=== PATIENT | female | born 1960 | race Caucasian/White ===

== ENCOUNTER 2020-10-24 14:44 | Outpatient (CLI) | payer BC, SELFPAY ==
--- NOTE | ~2020-10-24 | DEXA_ITS ---
Bone Density Report Name: Rola Douglas Age: 59 Sex: Female Ethnicity: White Date of : 1960 Indication: postmenopausal; Referring Provider: JcPeace Study: Bone densitometry was performed. Exam Date: October 24, 2020 Accession number: [id number] Bone Density: Region BMD T-score Z-score Classification AP Spine (L1-L4) 0.807 -2.2 -0.7 Osteopenia Femoral Neck (Left) 0.668 -1.6 -0.3 Osteopenia Total Hip (Left) 0.870 -0.6 0.4 Normal Total Hip Bilateral Avg 0.857 -0.7 0.3 Normal Femoral Neck (Right) 0.644 -1.8 -0.5 Osteopenia Total Hip (Right) 0.842 -0.8 0.2 Normal World Health Organization criteria for BMD impression classify patients as: Normal (T-score at or above -1.0), Osteopenia (T-score between -1.0 and -2.5), or Osteoporosis (T-score at or below -2.5). 10-year Fracture Risk(1): Major Osteoporotic Fracture 8.4% Hip Fracture 0.9% Reported Risk Factors: [place] (), Neck BMD=0.644, BMI=36.3 (1) FRAX(R) Version 3.08. Fracture probability calculated for an untreated patient. Fracture probability may be lower if the patient has received treatment. Clinical Information Provided by Patient: Has used the following medications: Vitamin D, Calcium Patient maximum height was 63.5 Menopause Age: 53 No regular weight bearing exercise Drinks caffeinated beverages Onset of menses at age 11 Number of children 2 Impression: The patient has low bone mass, based on the Total Spine T-score. The patient has an estimated ten-year risk of hip fracture of 0.9% and an estimated ten-year risk of major fracture of 8.4%, based on the WHO FRAX algorithm. Discussion: BONE DENSITY IS LOW AT ONE OR MORE SKELETAL SITES. This patient's lowest T-score is low at one or more skeletal sites. It meets the World Health Organization's (WHO) criteria for ?low bone mass? (T-score between -1.0 and -2.5). The patient's 10-year risk of fracture as calculated by FRAX is less than the threshold where pharmacological therapy is recommended by the National Osteoporosis Foundation (NOF). However, all treatment decisions require clinical judgment and consideration of individual patient factors, including patient preferences, comorbidities, previous drug use, risk factors not captured in the FRAX model (e.g., frailty, falls, vitamin D deficiency, increased bone turnover, interval significant decline in bone density) and possible under or overestimation of fracture risk by FRAX. The patient should follow a healthful lifestyle (good nutrition with adequate calcium and vitamin D, and appropriate weight-bearing exercise). Follow-Up: Consider repeating this study in 2 to 3 years to reassess this patient's status, or sooner if there is some new clinical indication. Reported by: [facility] on 10/24/2020 3:08:00 PM.
== END 2020-10-24 14:45 | disposition home or self-care (01) ==
LOC: ANHIMG 14:47
PROVIDERS: Family Provider Family Medicine; PCP Internal Medicine; Visit Provider Internal Medicine
DX: Z78.0 Asymptomatic menopausal state (principal); M85.89 Other specified disorders of bone density and structure, multiple sites
CPT/HCPCS: 77080

== ENCOUNTER 2021-01-01 15:15 | Outpatient (CLI) | payer BC, SELFPAY ==
--- NOTE | ~2021-01-01 | MM_ITS ---
EXAMINATION: MM screening [facility] BI w darshan HISTORY: Screening TECHNIQUE: Craniocaudal and mediolateral oblique 3-D tomosynthesis images were obtained and synthetic 2-D images were generated. CAD analysis was submitted and interpreted. COMPARISON: Comparison to multiple prior studies sequentially, with oldest reviewed study dated 02/22.. BREAST PARENCHYMAL COMPOSITION: There are scattered areas of fibroglandular density. FINDINGS: There is no evidence of suspicious mass, calcification, or architectural distortion to sugg est malignancy in either breast. There has been no suspicious interval change. IMPRESSION: 1. No mammographic evidence of malignancy. 2. Recommend routine screening mammography in one year. BI-RADS Category 1: Negative Reviewed, dictated and finalized at location A.
== END 2021-01-01 15:16 | disposition home or self-care (01) ==
LOC: ANHIMG 15:18
PROVIDERS: PCP Internal Medicine; Visit Provider Internal Medicine
DX: Z12.31 Encounter for screening mammogram for malignant neoplasm of breast (principal)
CPT/HCPCS: 77063; 77067

== ENCOUNTER 2021-04-07 12:17 | Observation (INO) | payer BC, SELFPAY ==
[2021-04-07] VITALS (13 sets, daily range): BP systolic 80–167; BP diastolic 49–83; PULSE 77–110; RESP 14–20; TEMP 36.5–37.2; O2SAT 94–99; BMI 36.8
--- NOTE | ~2021-04-07 | CT_ITS ---
EXAMINATION: CTA chest PE protocol DATE: 04/07/2021 17:48 INDICATION: Shortness of breath. TECHNIQUE: Computed tomography angiography (CTA) of the chest was performed with 100 mL Omnipaque-350 intravenous contrast timed to evaluate the pulmonary arteries. Coronal maximum intensity projection 3D-reconstructions were created by the technologist. Automated exposure control and iterative reconst ruction technique were employed. The dose-length product was 482.71 mGy-cm. COMPARISON: CT abdomen and pelvis 03/05/2015 FINDINGS: The lungs demonstrate mild atelectasis. No pleural effusion. The heart size is normal. No p ericardial effusion. There is no pulmonary embolus. There is mild thoracic spondylosis. IMPRESSION: 1. No pulmonary embolus. Reviewed, dictated and finalized at location A. IMPRESSION: 1. No pulmonary embolus.
--- NOTE | ~2021-04-07 | CT_ITS ---
EXAMINATION: CT BRAIN W/O DATE: 04/07/2021 13:41 INDICATION: Syncope. Low blood pressure. TECHNIQUE: Computed tomography (CT) of the head was performed without intravenous contrast. The dose- length product was 605.33 mGy-cm. Automated exposure control and iterative reconstruction technique w ere employed. COMPARISON: No prior studies for comparison. FINDINGS: Normal brain parenchymal volume for age. Normal cornelius-white differentiation. No acute intrac ranial hemorrhage, infarction, mass or mass effect. No ventriculomegaly or midline shift. Midline sagittal images demonstrate a normal corpus callosum, c raniovertebral junction and sella turcica. Basilar cisterns are patent. Paranasal sinuses and mastoids are pneumatized. No depressed skull fractures. IMPRESSION: 1. No acute intracranial abnormality. Reviewed, dictated and finalized at location A.
--- NOTE | 2021-04-07 12:21 | ECG_ITS ---
Measurements Intervals [place] Rate: 98 P: 11 FL: 137 QRS: -7 QRSD: 98 T: -7 QT: 350 QTc: 448 Interpretive Statements SINUS RHYTHM DELAYED PRECORDIAL R/S TRANSITION VOLTAGE CRITERIA FOR LVH BORDERLINE T WAVE ABNORMALITY- INFERIOR LEADS BASELINE WANDER- I, V5 BORDERLINE ECG Electronically Signed On 04-07-2021 16:30:10 CDT by Dylon Queen D.O.
[2021-04-07 12:37] LABS: Basophils Percent Auto 0.3 % (0.2-1.2); Eosinophils Absolute Auto 0.1 K/mm3 (0-0.3); Eosinophils Percent Auto 0.6 % (0-4.4); Hematocrit 43.4 % (37.0-47.0); Hemoglobin 14.5 g/dL (12.0-15.0); Immature Granulocyte Absolute 0.04 K/mm3 (0.00-0.031); Immature Granulocyte Percent A 0.5 % (0-0.5); Lymphocytes Absolute Auto 2.02 K/mm3 (0.9-3.2); Lymphocytes Percent Auto 22.9 % (18.3-44.2); Mean Corpuscular HGB Conc 33.4 g/dl (32-36); Mean Corpuscular Hemoglobin 29.3 pg (26-34); Mean Corpuscular Volume 87.7 fl (80-100); Monocytes Absolute Auto 0.7 K/mm3 (0.1-0.6); Monocytes Percent Auto 8.4 % (2.6-8.5); Neutrophils Percent Auto 67.3 % (45.5-73.1); Platelet Count Result 355 k/mm3 (150-375); Red Blood Count 4.95 M/mm3 (4.2-5.4); Red Cell Distribution Width 13.1 % (11.5-14.5); White Blood Count 8.8 K/mm3 (4.5-10.0)
[2021-04-07 12:46] LABS: Anion Gap 12 mmol/L (8-16); Blood Urea Nitrogen 20 mg/dL (7-17); Calcium 10.5 mg/dL (8.4-10.2); Carbon Dioxide 23 mmol/L (22-30); Chloride 102 mmol/L (98-107); Estimated CRCL calculation 32 ml/min; Estimated Glomerular Filt Rate 29; Glucose 140 mg/dL (65-110); Potassium 4.1 mmol/L (3.4-5.0); Sodium 137 mmol/L (137-145)
[2021-04-07] MEDS: LACTATED RINGERS 1,000 ML 999 ML IV CONT ×2 (13:15→14:59)
--- NOTE | 2021-04-07 14:22 | PC.NURSE ---
called lab umm 1400 added on BNP, Hep, Trop Baseline, Parathyroid, and D Dimer
[2021-04-07 14:28] LABS: D Dimer 1.96 ug/mL (<0.48)
[2021-04-07 14:36] LABS: Alanine Aminotransferase 37 U/L (4-35); Albumin Level 4.7 g/dL (3.5-5.1); Alkaline Phosphatase 101 U/L (38-126); Aspartate Amino Transferase 44 U/L (14-36); Bilirubin,Total 0.9 mg/dL (0.2-1.3)
--- NOTE | 2021-04-07 14:45 | ED.SYNCOPE ---
HPI - Syncope General Chief Complaint: Syncope Stated Complaint: syncope Time Seen by Provider: 04/07/21 13:06 Source: patient Mode of arrival: ambulatory Limitations: no limitations History of Present Illness HPI narrative: 61-year-old female History of hypertension and hypothyroid Today she was lying on the ground at a [facility] [place] and when she sat up got very lightheaded, and then she moved to a bench and passed out She reports she believes she may have taken a minute or 2 to return to normal level of consciousness and that there was no seizure activity witnessed No chest pain reported Here she is lightheaded when she stands up She reports that she has had some vague and nonspecific symptoms for the last 2 or 3 days including a subjective fever and a poor appetite and she has not been eating well but she has been taking fluids okay She did take her lisinopril this morning She is not aware of any kidney issues that she may have had in the past Related Data Home Medications Medication Instructions Recorded Confirmed ergocalciferol (vitamin D2) 04/07/21 levothyroxine [Synthroid] 04/07/21 lisinopril-hydrochlorothiazide tablet 04/07/21 Allergies Allergy/AdvReac Type Severity Reaction Status Date / Time No Known Allergies Allergy Unknown Verified 04/07/21 12:36 Review of Systems Review of Systems: All systems reviewed & are unremarkable except as noted in HPI and below Constitutional: Constitutional: Reports no additional constitutional complaints, Denies chills, Reports fatigue, Reports fever(s), Denies headache(s) and Reports weakness Eyes: Eyes: Reports no additional eye complaints and Denies change in vision ENT: Denies headache(s) and Denies sore throat Cardiovascular: Cardiovascular: Denies chest pain and Denies dyspnea Respiratory: Respiratory: Denies cough and Denies dyspnea Gastrointestinal: Gastrointestinal: Denies abdominal pain, Denies diarrhea and Denies vomiting Genitourinary: Genitourinary: Denies urinary frequency and Denies dysuria Musculoskeletal: Musculoskeletal: Denies deformity, Denies arthralgias, Denies joint swelling and Denies numbness Integumentary/Breasts: Skin/Breast: Denies rash and Denies wounds Neurologic: Denies headache(s), Denies focal weakness and Denies numbness Psychiatric: Psychiatric: Reports no additional psychiatric complaints Endocrine: Endocrine: Reports no additional endocrine complaints Hematologic/Lymphatic: Hematologic/Lymphatic: Reports no additional hematologic/lymphatic complaints Allergic/Immunologic: Allergic/Immunologic: Reports no additional allergic/immunologic complaints [facility] Family History Family History (System 07/11/20 @ 10:24 by Jadon Silverman) Father Family history of diabetes mellitus in first degree relative Social History Social History (System 07/11/20 @ 10:24 by Jadon Silverman) Alcohol intake: current Gender identity (if verbalized by the patient): Female Exam Const: General: cooperative, no acute distress and alert Orientation/consciousness: patient oriented x3 (alert) HENMT: Head: normal to inspection, normocephalic, atraumatic, no contusions and no hematomas Ears: external ears normal General nose exam: no epistaxis Eyes: Conjunctivae: conjunctivae normal Pupils: Equal, round and reactive pupils present EOM: EOMs intact bilaterally Neck: Neck: normal visual inspection, supple and no JVD Resp: Effort & Inspection: normal respiratory effort and not labored Auscultation: clear to auscultation bilaterally, no rales, no rhonchi, no wheezes and other (BS =) Cardio: Rate: regular rate Rhythm: regular rhythm Heart sounds: no murmurs GI: GI Palp: Yes Soft to palpation and No Tenderness to palpation present (GI) Skin: General skin exam: normal color and no rashes or lesions noted Neuro: General: patient oriented x3 (alert) and moves all extremities Speech: normal speech Extrem: General: nor
[2021-04-07 14:49] LABS: NT Pro B Type Natriuretic Pept 31 pg/mL (5-100); Parathyroid Intact 72.4 pg/mL (7.5-53.5); Troponin I < 0.012 ng/mL (0.000-0.034)
--- NOTE | 2021-04-07 15:29 | PC.NURSE ---
lab, umm, added on vit D
[2021-04-07 16:03] LABS: Vitamin D 25 Hydroxy 50.4 ng/mL
[2021-04-07 17:15] LABS: Add Urine Microscopic? NO; Appearance Urine Clear (Clear); Bilirubin Urine Negative (Negative); Blood Urine Negative (Negative); Color Urine Yellow (Yellow); Glucose Urine UA Negative (Negative); Ketones Urine Negative (Negative); Leukocyte Esterase Ur Negative LEU/UL (Negative); Nitrate Urine Negative (Negative); Protein Urine Negative (Negative); Specific Grav Ur 1.008 (1.001-1.035); Urobilinogen Urine Negative mg/dL (<2.0)
[2021-04-07 17:25] LABS: Anion Gap 8 mmol/L (8-16); Blood Urea Nitrogen 20 mg/dL (7-17); Calcium 9.5 mg/dL (8.4-10.2); Carbon Dioxide 26 mmol/L (22-30); Chloride 98 mmol/L (98-107); Estimated CRCL calculation 41 ml/min; Estimated Glomerular Filt Rate 38; Glucose 104 mg/dL (65-110); Potassium 4.3 mmol/L (3.4-5.0); Sodium 132 mmol/L (137-145)
--- NOTE | 2021-04-07 20:26 | PM.IMHP ---
H&P: HPI History of Present Illness Date/Time: 04/07/21 20:26 Chief Complaint: Near syncope Narrative: This 60-year-old female with past medical history significant for hypothyroidism disease, hypertension well controlled. Patient states she has not been feeling well for the last couple of days was some chills poor appetite and she continued to take lisinopril and hydrochlorothiazide she was local events a parade she was sitting on the floor taking pictures and then she stood up abruptly when she fell dizzy lightheaded and about to pass out went and sat on a bench and was noticing tunneled vision she was brought to the emergency room. Preliminary workup was significant for slightly elevated creatinine. She never really completely passed out she denies any cough any sputum production any nausea vomiting diarrhea no chest pain no PND no orthopnea no leg swelling she has been in her usual state of health up until these. Patient has been placed in observation Review of Systems Review of Systems: Near syncope Constitutional: Constitutional: Reports chills, Denies fatigue, Denies fever(s), Reports lethargy, Denies malaise and Denies weakness Eyes: Eyes: Denies change in vision ENT: Denies dysphagia, Denies nasal congestion, Denies nasal discharge, Denies nasal obstruction and Denies odynophagia Cardiovascular: Cardiovascular: Denies claudication, Reports lightheadedness, Denies radiating jaw, neck or arm pain, Denies palpitations, Denies dyspnea, Denies dyspnea on exertion, Denies orthopnea and Denies paroxysmal nocturnal dyspnea Respiratory: Respiratory: Denies cough and Denies dyspnea Gastrointestinal: Gastrointestinal: Denies diarrhea, Denies nausea and Denies vomiting Genitourinary: Genitourinary: Reports no additional female genitourinary complaints Musculoskeletal: Musculoskeletal: Reports no additional musculoskeletal complaints Integumentary/Breasts: Skin/Breast: Reports system reviewed and no additional complaints, except as docu Neurologic: Reports system reviewed and no additional complaints, except as documented, Denies focal weakness and Denies Sensory deficit (Neuro) Psychiatric: Psychiatric: Reports no additional psychiatric complaints Endocrine: Endocrine: Reports no additional endocrine complaints Hematologic/Lymphatic: Hematologic/Lymphatic: Reports no additional hematologic/lymphatic complaints Allergic/Immunologic: Allergic/Immunologic: Reports no additional allergic/immunologic complaints [facility] Family History Family History (Updated 04/07/21 @ 21:28 by Mally Gao RN) Father Family history of diabetes mellitus in first degree relative Malignant neoplasm of prostate Other Cerebrovascular accident Sibling Family history of diabetes mellitus in first degree relative Sibling Family history of diabetes mellitus in first degree relative Sibling Family history of diabetes mellitus in first degree relative Sibling Family history of diabetes mellitus in first degree relative Other Brain cancer Mother Skin cancer Grandparent Breast cancer Social History Social History (System 07/11/20 @ 10:24 by Jadon Silverman) Smoking status: Never smoker Second hand tobacco smoke exposure: No Alcohol intake: never Substance use: never Gender identity (if verbalized by the patient): Female Sexual Orientation (if Verbalized by the Patient): Straight or Heterosexual Spiritual care concerns: No Meds Home Medications and Allergies Home Medications Medication Instructions Recorded Confirmed Type ergocalciferol (vitamin D2) 1,250 mcg PO WEEKLY 04/07/21 04/07/21 History levothyroxine [Synthroid] 112 mcg PO DAILY 04/07/21 04/07/21 History lisinopril-hydrochlorothiazide 1 tablet PO DAILY 04/07/21 04/07/21 History Allergies Allergy/AdvReac Type Severity Reaction Status Date / Time No Known Allergies Allergy Unknown Verified 04/07/21 21:30 Vital Signs Vital Signs - 24 hr
--- NOTE | 2021-04-07 21:00 | ADMGEN ---
This patient, Rola Douglas, was admitted to Medical Room 340-01. Patient/family oriented to hospital policies and general routines including ID bracelet, bed and alarms, visiting hours, pain management, procedures, bathroom and other care routines, personal items, smoking policy, room service/diet, and visiting hours. Information on how to activate the Rapid Response Team has been discussed. Patient/Family are encouraged to report perceived risks to care and to ask questions if they do not understand what they are told or what they should do.
[2021-04-07] MEDS: LACTATED RINGERS 1,000 ML 150 ML IV CONT (21:16)
[2021-04-08] VITALS: PULSE 71
[2021-04-08 04:00] VITALS: PULSE 91
[2021-04-08] MEDS: LACTATED RINGERS 1,000 ML 150 ML IV CONT (04:02)
[2021-04-08 05:26] VITALS: BP 137/69; PULSE 79; RESP 16; TEMP 36.6; O2SAT 97
[2021-04-08 06:58] LABS: Anion Gap 6 mmol/L (8-16); Blood Urea Nitrogen 18 mg/dL (7-17); Calcium 9.5 mg/dL (8.4-10.2); Carbon Dioxide 27 mmol/L (22-30); Chloride 103 mmol/L (98-107); Estimated CRCL calculation 61 ml/min; Estimated Glomerular Filt Rate > 60; Glucose 89 mg/dL (65-110); Potassium 4.1 mmol/L (3.4-5.0); Sodium 136 mmol/L (137-145)
[2021-04-08 08:00] VITALS: PULSE 71
--- NOTE | 2021-04-08 11:10 | PM.DS ---
DS: Admitting Diagnosis Admitting Diagnosis Syncope DS: Discharge Diagnosis Discharge Diagnosis (1) Syncope: Code(s): R55 - Syncope and collapse Status: Acute Assessment and Plan: Likely secondary to patient taking lisinopril at home and not drinking all day while being outside in the hot sun. Patient likely had a syncopal episode secondary to dehydration. It appears she has never lost full consciousness she just felt lightheaded. She has no episodes of bradycardia or any other history of syncope in the past. She has no history of falls. Likely isolated incident. (2) Dehydration: Code(s): E86.0 - Dehydration Status: Acute Assessment and Plan: Improved with IV fluid (3) RAJIV (acute kidney injury): Code(s): N17.9 - Acute kidney failure, unspecified Status: Acute Assessment and Plan: Fluid with IV fluids 2 L, normalized. Prerenal etiology DS: Summary Hospital Course Reason for hospitalization: Syncope Hospital Course: Patient is a 60-year-old female with past medical history of hypertension, hypertension, vitamin-D deficiency presents to ED with complaints of lightheadedness. She was at a parade at [facility] and felt lightheaded and dizzy. She took her lisinopril earlier that day and did not eat or drink anything the day before. She is outside the very hot day and follow lightheaded. She has never had a history of syncopal episodes or bradycardia. She has never had issues like this in the past. When I was talking to patient this morning she described event more as presyncope as opposed to syncope with a feeling of lightheadedness coming on. She improved back to baseline after 2 L IV fluids. She was found to have an RAJIV with creatinine 1.8, improved with IV fluids down to creatinine 0.9. Patient's symptoms completely resolved after the IV fluids. She understands are low blood pressure can cause her to feel this way. Patient will keep a blood pressure log at home. We discussed that her home lisinopril dose may need to be adjusted in the future. She will follow-up with PCP in 1 week with blood pressure check. Patient's vitals stable, labs stable, patient to for discharge. Patient understands and agrees with plan. Status at Discharge Cognitive/behavioral status at discharge: At baseline Functional status at discharge: independent ambulation Overall status at discharge: patient is back to baseline Time Spent with Patient Time attestation: Total time spent providing and/or coordinating discharge services:35 Exam Narrative: - GENERAL: No acute distress. Well-nourished. - EYES: EOMI. Anicteric. - HENT: Moist mucous membranes. - LUNGS: Clear to auscultation bilaterally, no wheezing, rhonchi, or rales. - CARDIOVASCULAR: Regular rate and rhythm. No murmur. No JVD. - ABDOMEN: Soft, non-tender and non-distended. No palpable masses. - EXTREMITIES: No edema. Peripheral pulses 2+. Non-tender. - NEUROLOGIC: No focal neurological deficits. CN II-XII grossly intact. - PSYCHIATRIC: Awake, Alert and oriented x 3. Appropriate mood and affect. - SKIN: No rashes or lesions. Warm. - LYMPH: No cervical lymphadenopathy. DS: Data Data Completed and Pending Labs on day of discharge: Labs from last 24 hours 04/08/21 04/07/21 04/07/21 06:09 17:04 17:03 WBC RBC Hgb Hct MCV MCH MCHC RDW Plt Count MPV Immature Gran % (Auto) Neut % (Auto) Lymph % (Auto) [place] % (Auto) Eos % (Auto) Baso % (Auto) Lymph # (Auto) [place] # (Auto) Eos # (Auto) Baso # (Auto) Abs Immat Gran (auto) Absolute Neuts (auto) Absolute Nucleated RBC Nucleated RBC % D-Dimer Sodium 136 L 132 L Potassium 4.1 4.3 Chloride 103 98 Carbon Dioxide 27 26 Anion Gap 6 L 8 BUN 18 H 20 H Creatinine 0.90 1.40 H Estim Creat Clear Calc 61 41 Estimated GFR > 60 38 L Glucose 89 104 Calcium 9.5 9.5 Total Bilir
== END 2021-04-08 11:50 | disposition home or self-care (01) ==
LOC: ANHED 18:00 → ANH3MED 20:16
PROVIDERS: Emergency Medicine; Admitting Provider Student in an Organized Health Care Education/Training Program; Emergency Provider Emergency Medicine; PCP Internal Medicine; Visit Provider Student in an Organized Health Care Education/Training Program
DX: R55 Syncope and collapse (principal); E86.0 Dehydration; N17.9 Acute kidney failure, unspecified; E03.9 Hypothyroidism, unspecified; I10 Essential (primary) hypertension
CPT/HCPCS: 36415; 70450; 71275; 80048; 80076; 81003; 82306; 83880; 83970; 84484; 85025; 85380; 93005; 96360; 96361; 99285; G0378; J7120; Q9967

== ENCOUNTER 2021-06-03 08:24 | Outpatient (CLI) | payer BC, SELFPAY ==
--- NOTE | 2021-06-03 | EST_ITS ---
Patient Info Name: Rola Douglas Age: 60 years : 1960 Gender: Female Ht: 63 in Wt: 203 lbs BSA: 2.07 m2 HR: 79 bpm BP: 126 / 73 mmHg Heart Rhythm: Sinus Rhythm Exam Date: 06/03/2021 8:51 AM Exam Location: [facility] Stress Patient Status: Outpatient Admit Date: 06/03/2021 Staff Ordering Physician: JcPeace MD Attending Provider: JcPeace MD Exercise Technologist: Kamille Barksdale CT Exercise Physician: Anil Hi MD Exam Type: CA stress test treadmill Study Info Indications R94.31 - Abnormal electrocardiogram ECG EKG An exercise stress test was performed. Summary 1. Normal ST segment response to stress. 2. No exercise-induced chest pain. 3. Above average exercise capacity for age. Protocol: [facility] ECG Details Stage: REST Duration (min): 0 min : 56 sec Speed (mph): 0.0 Grade (%): 0 HR (bpm): 79 SBP (mmHg): 126 DBP (mmHg): 73 METS: --- Stage: REST Duration (min): 10 min : 0 sec Speed (mph): 0.0 Grade (%): 0 HR (bpm): 85 SBP (mmHg): 126 DBP (mmHg): 73 METS: --- Stage: REST Duration (min): 10 min : 1 sec Speed (mph): 0.0 Grade (%): 0 HR (bpm): 85 SBP (mmHg): 126 DBP (mmHg): 73 METS: --- Stage: STAGE 1 Duration (min): 1 min : 0 sec Speed (mph): 1.7 Grade (%): 10 HR (bpm): 106 SBP (mmHg): 126 DBP (mmHg): 73 METS: --- Stage: STAGE 1 Duration (min): 2 min : 0 sec Speed (mph): 1.7 Grade (%): 10 HR (bpm): 121 SBP (mmHg): 126 DBP (mmHg): 73 METS: --- Stage: STAGE 1 Duration (min): 3 min : 0 sec Speed (mph): 1.7 Grade (%): 10 HR (bpm): 117 SBP (mmHg): 122 DBP (mmHg): 77 METS: --- Stage: STAGE 2 Duration (min): 1 min : 0 sec Speed (mph): 2.5 Grade (%): 12 HR (bpm): 125 SBP (mmHg): 122 DBP (mmHg): 77 METS: --- Stage: STAGE 2 Duration (min): 2 min : 0 sec Speed (mph): 2.5 Grade (%): 12 HR (bpm): 133 SBP (mmHg): 155 DBP (mmHg): 74 METS: --- Stage: STAGE 2 Duration (min): 3 min : 0 sec Speed (mph): 2.5 Grade (%): 12 HR (bpm): 138 SBP (mmHg): 155 DBP (mmHg): 74 METS: --- Stage: STAGE 3 Duration (min): 1 min : 0 sec Speed (mph): 3.4 Grade (%): 14 HR (bpm): 145 SBP (mmHg): 187 DBP (mmHg): 67 METS: --- Stage: STAGE 3 Duration (min): 1 min : 37 sec Speed (mph): 3.4 Grade (%): 14 HR (bpm): 147 SBP (mmHg): 187 DBP (mmHg): 67 METS: --- Stage: RECOVERY Duration (min): 0 min : 22 sec Speed (mph): 0.0 Grade (%): 0 HR (bpm): 146 SBP (mmHg): 187 DBP (mmHg): 67 METS: --- Stage: RECOVERY Duration (min): 1 min : 22 sec Speed (mph): 0.0 Grade (%): 0 HR (bpm): 129 SBP (mmHg): 187 DBP (mmHg): 67 METS: ---
== END 2021-06-03 08:25 | disposition home or self-care (01) ==
PROVIDERS: PCP Internal Medicine; Visit Provider Internal Medicine
DX: R94.31 Abnormal electrocardiogram [ECG] [EKG] (principal)
CPT/HCPCS: 93017

== ENCOUNTER 2022-03-19 16:16 | Outpatient (CLI) | payer BC, SELFPAY ==
--- NOTE | ~2022-03-19 | MM_ITS ---
EXAMINATION: MM screening [facility] BI w darshan HISTORY: Screening TECHNIQUE: Craniocaudal and mediolateral oblique 3-D tomosynthesis images were obtained and synthetic 2-D images were generated. CAD analysis was submitted and interpreted. COMPARISON: Comparison to multiple prior studies sequentially, with oldest reviewed study dated 03/2013. BREAST PARENCHYMAL COMPOSITION: There are scattered areas of fibroglandular density. FINDINGS: There is no evidence of suspicious mass, calcification, or architectural distortion to sugg est malignancy in either breast. There has been no suspicious interval change. IMPRESSION: 1. No mammographic evidence of malignancy. 2. Recommend routine screening mammography in one year. BI-RADS Category 1: Negative Reviewed, dictated and finalized at location L.
== END 2022-03-19 16:17 | disposition home or self-care (01) ==
LOC: ANHIMG 16:19
PROVIDERS: PCP Internal Medicine; Visit Provider Obstetrics & Gynecology Gynecology
DX: Z12.31 Encounter for screening mammogram for malignant neoplasm of breast (principal)
CPT/HCPCS: 77063; 77067

== ENCOUNTER 2022-10-28 08:55 | Outpatient (CLI) | payer BC, SELFPAY ==
--- NOTE | ~2022-10-28 | DEXA_ITS ---
Bone Density Report Name: JABIER RUIZ Age: 61 Sex: Female Ethnicity: White Date of : 1960 Indication: osteopenia; monitoring treatment; height loss; prior fracture; postmenopausal Referring Provider: SONDRA DELUCA Study: Bone densitometry was performed. Exam Date: October 28, 2022 Accession number: [id number] Bone Density: Region BMD T-score Z-score Classification AP Spine(L1-L4) 0.780 -2.4 -0.8 Osteopenia Femoral Neck (Left) 0.661 -1.7 -0.3 Osteopenia Total Hip (Left) 0.848 -0.8 0.3 Normal Femoral Neck (Right) 0.632 -2.0 -0.5 Osteopenia Total Hip (Right) 0.818 -1.0 0.1 Normal Total Hip Mean 0.833 -0.9 0.2 Normal World Health Organization criteria for BMD impression classify patients as: Normal (T-score at or above -1.0), Osteopenia (T-score between -1.0 and -2.5), or Osteoporosis (T-score at or below -2.5). 10-year Fracture Risk: FRAX not reported because: Treated for osteoporosis Previous Exams: Region Exam Age BMD T-score BMD Change BMD Change Date g/cm2 vs Baseline vs Previous AP Spine (L1-L4) 10/28/2022 61 0.780 -2.4 -0.027 (-3.4%) -0.027 (-3.4%) 10/24/2020 59 0.807 -2.2 Total Hip(Left) 10/28/2022 61 0.848 -0.8 -0.022 (-2.5%) -0.022 (-2.5%) 10/24/2020 59 0.870 -0.6 Total Hip(Right) 10/28/2022 61 0.818 -1.0 -0.024 (-2.9%) -0.024 (-2.9%) 10/24/2020 59 0.842 -0.8 *Denotes significance at 95% confidence level, LSC for AP Spine = 0.022 g/cm2, LSC for Total Hip = 0.027 g/cm2 Clinical Information Provided by Patient: Has had a low trauma fracture Is being treated for osteoporosis Has used the following medications: Actonel (i.e. risedronate), Vitamin D Patient maximum height was 63.5 Menopause Age: 53 No regular weight bearing exercise Drinks caffeinated beverages Onset of menses at age 11 Number of children 2 Impression: The patient has low bone mass, based on the Total Spine T-score. The patient has risk factors, including: previous fracture. The BMD for the AP Spine (L1-L4) decreased, changing by -3.4% since the last DXA exam. Discussion: SIGNIFICANT BONE LOSS OBSERVED. Adherence to therapy (including calcium and vitamin D intake) should be assessed. If compliance is not a factor, review management and exclusion of secondary causes of bone loss. It is important to ask patients whether they are taking their medications and to encourage continued and appropriate compliance with their osteopor
== END 2022-10-28 08:56 | disposition home or self-care (01) ==
PROVIDERS: PCP Internal Medicine; Visit Provider Obstetrics & Gynecology Gynecology
DX: Z78.0 Asymptomatic menopausal state (principal); M85.89 Other specified disorders of bone density and structure, multiple sites
CPT/HCPCS: 77080

== ENCOUNTER 2023-06-22 07:41 | Outpatient (CLI) | payer BC, SELFPAY ==
--- NOTE | ~2023-06-22 | MM_ITS ---
EXAMINATION: MM screening juliocesar BI w darshan HISTORY: Screening mammogram TECHNIQUE: Craniocaudal and mediolateral oblique 3-D tomosynthesis images were obtained and synthetic 2-D images were generated. CAD analysis was submitted and interpreted. COMPARISON: 03/19/2022, 12/2020, 05/21/2016 bilateral screening mammogram examinations BREAST PARENCHYMAL COMPOSITION: There are scattered areas of fibroglandular density. FINDINGS: 2 biopsy markers on the left; history of prior benign left breast biopsy. Scattered bilater al benign calcifications. There is no evidence of suspicious mass, calcification, or architectural di stortion to suggest malignancy in either breast. There has been no suspicious interval change. IMPRESSION: 1. No mammographic evidence of malignancy. 2. Recommend routine screening mammography in one year. BI-RADS Category 2: Benign finding(s). Reviewed, dictated and finalized at location A.
== END 2023-06-22 07:42 | disposition home or self-care (01) ==
LOC: ANHIMG 07:44
PROVIDERS: PCP Internal Medicine; Visit Provider Obstetrics & Gynecology Gynecology
DX: Z12.31 Encounter for screening mammogram for malignant neoplasm of breast (principal)
CPT/HCPCS: 77063; 77067

== ENCOUNTER 2024-08-09 07:15 | Outpatient (CLI) | payer BC, SELFPAY ==
--- NOTE | ~2024-08-09 | MM_ITS ---
EXAMINATION: MM screening juliocesar BI w darshan HISTORY: Screening TECHNIQUE: Craniocaudal and mediolateral oblique 3-D tomosynthesis images were obtained and synthetic 2-D images were generated. CAD analysis was submitted and interpreted. COMPARISON: Comparison to multiple prior studies sequentially, with oldest reviewed study dated 05/21. BREAST PARENCHYMAL COMPOSITION: Not dense: There are scattered areas of fibroglandular density. FINDINGS: There are benign bilateral breast calcifications. There is no evidence of suspicious mass, calcification, or architectural distortion to suggest malignancy in either breast. There has been no suspicious interval change. IMPRESSION: 1. No mammographic evidence of malignancy. 2. Recommend routine screening mammography in one year. BI-RADS Category 1: Negative Reviewed, dictated and finalized at location B. [employer]
== END 2024-08-09 07:16 | disposition home or self-care (01) ==
PROVIDERS: PCP Family Medicine; Visit Provider Obstetrics & Gynecology Gynecology
DX: Z12.31 Encounter for screening mammogram for malignant neoplasm of breast (principal)
CPT/HCPCS: 77063; 77067

== ENCOUNTER 2024-11-01 09:20 | Outpatient (CLI) | payer MEDICARE, BC, SELFPAY | END 2024-11-01 09:21 | disposition home or self-care (01) | PROVIDERS: PCP Family Medicine; Visit Provider Obstetrics & Gynecology Gynecology | DX: Z78.0 Asymptomatic menopausal state (principal); M81.0 Age-related osteoporosis without current pathological fracture; M85.852 Other specified disorders of bone density and structure, left thigh; M85.851 Other specified disorders of bone density and structure, right thigh | CPT/HCPCS: 77080 ==